=== PATIENT | male | born 1955 | race Caucasian/White ===

== ENCOUNTER → 2016-12-04 | Outpatient (CLI) | payer OTHER ==
[~2016-12-04] MED LIST: ASPIRIN CHEWABL81 MG PO; CIALIS5 MG PO; CORDARONE 200M200 MG PO; ELIQUIS5 MG PO; FISH OIL 1,0001 EAC4 PO; FLOMAX 0.4 MG0.4 MG PO; HYDROCHLOROTHIA25 MG PO; LEVAQUIN500 MG PO; LOPRESSOR 25 MG25 MG PO; PRAVASTATIN SOD40 MG PO; TYLENOL W/CODEIN1 E1 PO
== END ==
LOC: HEART 5 09:21
DX: I48.1 Persistent atrial fibrillation (principal); I45.5 Other specified heart block; I34.0 Nonrheumatic mitral (valve) insufficiency; E78.5 Hyperlipidemia, unspecified; I10 Essential (primary) hypertension; I49.5 Sick sinus syndrome; R00.1 Bradycardia, unspecified; R00.2 Palpitations; Z79.899 Other long term (current) drug therapy; F17.210 Nicotine dependence, cigarettes, uncomplicated; R94.2 Abnormal results of pulmonary function studies
CPT/HCPCS: 94010; 94729

== ENCOUNTER → 2020-11-12 | Outpatient (CLI) | payer OTHER ==
[~2020-11-12] MED LIST changes: +AMOXICILLIN500 MG PO
== END ==
LOC: HEART 5 08:59
DX: Z79.899 Other long term (current) drug therapy (principal)
CPT/HCPCS: 94010; 94729

== ENCOUNTER 2020-12-04 16:43 | Emergency (ER) | payer OTHER ==
[~2020-12-04 16:43] MED LIST changes: -AMOXICILLIN500 MG PO
[2020-12-04 17:36] LABS: RED BLOOD COUNT 4.61 M/UL (4.20-5.50); WHITE BLOOD COUNT 6.2 K/UL (4.5-11.0)
[2020-12-04 17:54] LABS: BUN/CREATININE RATIO 22 (0-10)
[2020-12-04] MEDS ORDERED: AMOXICILLIN500 MG PO (18:40)
== END 2020-12-04 19:45 | disposition home or self-care (01) ==
LOC: ER1 16:43
PROVIDERS: Emergency Medicine
DX: R04.0 Epistaxis (principal); I10 Essential (primary) hypertension; I48.91 Unspecified atrial fibrillation; E78.5 Hyperlipidemia, unspecified; Z88.1 Allergy status to other antibiotic agents
CPT/HCPCS: 30903; 80053; 85025; 85610; 85730; 99283

== ENCOUNTER → 2021-02-25 | Outpatient (CLI) | payer OTHER ==
[~2021-02-25] MED LIST changes: +AMOXICILLIN500 MG PO
== END ==
LOC: ECHO 10-29 10:00
DX: I34.0 Nonrheumatic mitral (valve) insufficiency (principal); I48.0 Paroxysmal atrial fibrillation
CPT/HCPCS: ECHO; 93306

== ENCOUNTER → 2021-09-23 | Outpatient (CLI) | payer OTHER | LOC: HEART 5 08:39 | DX: R06.02 Shortness of breath (principal); Z79.899 Other long term (current) drug therapy; R94.2 Abnormal results of pulmonary function studies | CPT/HCPCS: 94010; 94729 ==